=== PATIENT | male | born 1945 | race Asian ===

== ENCOUNTER 2023-11-13 09:19 | Outpatient (CLI) | payer MEDICARE, MEDICAID ==
[2023-11-13 11:39] LABS: BASOPHILS # (AUTO) 0.1 10^3/uL (0.0-0.1); BASOPHILS % (AUTO) 0.9 %; EOSINOPHILS # (AUTO) 0.5 10^3/uL (0.0-0.7); EOSINOPHILS % (AUTO) 7.7 %; HCT - HEMATOCRIT 42.2 % (42.0-52.0); HGB - HEMOGLOBIN 12.4 g/dL (14.0-18.0); LYMPHOCYTES # (AUTO) 1.6 10^3/uL (1.5-3.5); MEAN CORPUSCULAR HGB CONC 29.4 g/dL (32.0-36.0); MEAN CORPUSCULAR VOLUME 78.1 fL (80.0-94.0); MEAN PLATELET VOLUME 11.8 fL (7.4-11.4); MONOCYTES # (AUTO) 0.5 10^3/uL (0.0-1.0); MONOCYTES % (AUTO) 7.7 %; NEUTROPHILS # (AUTO) 3.9 10^3/uL (1.5-6.6); NEUTROPHILS % (AUTO) 59.2 %; PLT - PLATELET COUNT 391 10^3/uL (130-450); RED CELL DISTRIBUTION WIDTH 18.8 % (12.0-15.0); WHITE BLOOD COUNT 6.5 x10^3/uL (4.8-10.8)
[2023-11-13 11:58] LABS: ALBUMIN 4.7 g/dL (3.2-5.5); ALBUMIN/GLOBULIN RATIO 1.4 (1.0-2.2); ALKALINE PHOSPHATASE 88 IU/L (42-121); ALT ALANINE AMINOTRANSFERASE 48 IU/L (10-60); AST ASPARTATE AMINOTRANSFERASE 38 IU/L (10-42); BILIRUBIN,TOTAL 0.4 mg/dL (0.2-1.0); BUN - BLOOD UREA NITROGEN 31 mg/dL (6-20); CALCIUM 10.3 mg/dL (8.5-10.3); CARBON DIOXIDE - CO2 28 mmol/L (21-32); CHLORIDE 106 mmol/L (101-111); CHOL/HDL RATIO 2.7 (<5.0); CHOLESTEROL 117 mg/dL; CREATININE 1.3 mg/dL (0.6-1.3); GFR - MDRD 53 (>89); GLUCOSE 117 mg/dL (74-104); HDL CHOLESTEROL 44 mg/dL; LDL CHOLESTEROL,CALCULATED 37 mg/dL; LDL/HDL RATIO 0.8 (<3.6); POTASSIUM 3.9 mmol/L (3.5-4.5); SODIUM 139 mmol/L (135-145); TRIGLYCERIDES 178 mg/dL (48-352); VLDL CHOLESTEROL 36 mg/dL
[2023-11-13 12:01] LABS: ESTIMATED AVERAGE GLUCOSE 140 mg/dL (70-100); HEMOGLOBIN A1c% 6.5 % (4.27-6.07)
[2023-11-13 12:10] LABS: THYROID STIMULATING HORMONE 4.32 uIU/mL (0.34-5.60)
== END 2023-11-13 09:20 | disposition home or self-care (01) ==
LOC: LAB.N 09:19
PROVIDERS: ATTEND Family Medicine
DX: I1A.0 Resistant hypertension (principal); E78.5 Hyperlipidemia, unspecified; Z12.5 Encounter for screening for malignant neoplasm of prostate
CPT/HCPCS: 36415; 80053; 80061; 83036; 84443; 85025; G0103; 83721; 84153

== ENCOUNTER 2024-05-13 07:52 | Outpatient (CLI) | payer MEDICARE, MEDICAID ==
[2024-05-13 12:27] LABS: ALBUMIN 4.7 g/dL (3.2-5.5); ALBUMIN/GLOBULIN RATIO 1.5 (1.0-2.2); ALKALINE PHOSPHATASE 93 IU/L (42-121); ALT ALANINE AMINOTRANSFERASE 23 IU/L (10-60); AST ASPARTATE AMINOTRANSFERASE 20 IU/L (10-42); BILIRUBIN,TOTAL 0.5 mg/dL (0.2-1.0); BUN - BLOOD UREA NITROGEN 30 mg/dL (6-20); CALCIUM 10.3 mg/dL (8.5-10.3); CARBON DIOXIDE - CO2 27 mmol/L (21-32); CHLORIDE 103 mmol/L (101-111); CHOL/HDL RATIO 3.3 (<5.0); CHOLESTEROL 137 mg/dL; CREATININE 1.6 mg/dL (0.6-1.3); GFR - MDRD 42 (>89); GLUCOSE 121 mg/dL (74-104); HDL CHOLESTEROL 41 mg/dL; LDL CHOLESTEROL,CALCULATED 53 mg/dL; LDL/HDL RATIO 1.3 (<3.6); POTASSIUM 3.6 mmol/L (3.5-4.5); SODIUM 138 mmol/L (135-145); TOTAL PROTEIN 7.8 g/dL (6.4-8.9); TRIGLYCERIDES 214 mg/dL; VLDL CHOLESTEROL 43 mg/dL
[2024-05-13 12:33] LABS: THYROID STIMULATING HORMONE 3.51 uIU/mL (0.34-5.60)
[2024-05-13 12:46] LABS: ESTIMATED AVERAGE GLUCOSE 134 mg/dL (70-100); HEMOGLOBIN A1c% 6.3 % (4.27-6.07)
== END 2024-05-13 07:53 | disposition home or self-care (01) ==
LOC: LAB.N 07:52
PROVIDERS: ATTEND Family Medicine
DX: E11.22 Type 2 diabetes mellitus with diabetic chronic kidney disease (principal); N18.31 Chronic kidney disease, stage 3a; E78.5 Hyperlipidemia, unspecified
CPT/HCPCS: 36415; 80053; 80061; 83036; 83721; 84443